=== PATIENT | female | born 1960 | race Caucasian/White ===

== ENCOUNTER → 2019-08-03 | Outpatient (CLI) | payer BC ==
--- NOTE | 2019-08-03 16:49 | Diagnostic Imaging Report ---
EXAMINATION: CHEST 2 VIEWS INDICATION: Asthma COMPARISON: None FINDINGS: LINES/TUBES:None LUNGS:The lungs are well-inflated. No focal consolidation or pulmonary edema. 7 mm pulmonary nodule at the posterior right upper lobe. PLEURA:No pleural effusion or pneumothorax. MEDIASTINUM:The cardiomediastinal silhouette appears normal in size and shape. BONES/SOFT TISSUES:No acute osseous injury. ABDOMEN:No free air under the diaphragm. IMPRESSION: No focal pneumonia or pulmonary edema. 7 mm right upper lobe pulmonary nodule. Recommend further evaluation with chest CT on a nonurgent basis. Signed by: Mau Pandya MD on 08/03/2019 4:46 PM
== END ==
LOC: RAD 16:04
PROVIDERS: ATTEND Internal Medicine Critical Care Medicine
DX: J45.909 Unspecified asthma, uncomplicated (principal); K21.9 Gastro-esophageal reflux disease without esophagitis; J34.3 Hypertrophy of nasal turbinates
CPT/HCPCS: 71046

== ENCOUNTER 2020-03-14 11:55 | Inpatient (IN) | payer BC, OTHER ==
[2020-03-11 17:11] LABS: BASOPHILS # (AUTO) 0.1 (0.0-0.1); BASOPHILS % 1.1 % (0.0-1.0); EOSINOPHILS # (AUTO) 0.3 (0.0-0.4); EOSINOPHILS % 4.7 % (0.0-6.0); HEMATOCRIT 36.7 % (34.2-44.1); HEMOGLOBIN 12.1 g/dL (12.0-16.0); LYMPHOCYTES # (AUTO) 3.4 (1.0-3.2); LYMPHOCYTES % 52.2 % (18.0-39.1); MEAN CORPUSCULAR HEMOGLOBIN 29.2 pg (28-32); MEAN CORPUSCULAR VOLUME 88.4 fL (81-99); MONOCYTES # (AUTO) 0.8 (0.2-0.8); MONOCYTES % 12.2 % (4.4-11.3); NEUTROPHILS % 29.6 % (38.7-80.0); PLATELET COUNT 423 x10e3/uL (140-360); RED BLOOD COUNT 4.15 x10e6/uL (3.6-5.1); RED CELL DISTRIBUTION WIDTH 13.2 % (11.7-14.4)
[2020-03-11 17:27] LABS: ANION GAP 16.7 mmol/L (8-16); BLOOD UREA NITROGEN 17 mg/dL (7-26); BUN/CREATININE RATIO 22 (6-25); CALCIUM 9.3 mg/dL (8.4-10.2); CARBON DIOXIDE 24 mmol/L (22-29); CHLORIDE 96 mmol/L (98-107); CREATININE, SERUM 0.76 mg/dL (0.57-1.11); EST GLOMERULAR FILTRATION RATE > 60 ML/MIN (60-); GLUCOSE 121 mg/dL (74-118); POTASSIUM 3.7 mmol/L (3.5-5.1); SODIUM 133 mmol/L (136-145)
[~2020-03-14 11:55] MED LIST: AVAPRO150 MG PO; GLYBURIDE5 MG PO; HYDROCHLOROTHIA25 MG PO; METFORMIN HCL500 M2 PO; METOPROLOL TART25 MG PO; PROTONIX20 MG PO
[2020-03-14] MEDS ORDERED: GENTAMICIN 80MG/NS 100 ML 200 ML IV ONE (12:33)
[2020-03-14] MEDS ORDERED: PIPER-TAZ 3.375 GM 50 ML ONE (12:33)
[2020-03-14] MEDS ORDERED: CLINDAMYCIN 300MG 50 ML IV ONE (12:34)
[2020-03-14] MEDS ORDERED: MULTI-VITAMIN1 EACH PO (12:46)
[2020-03-14] MEDS ORDERED: FISH OIL 1,0001 EAC2 PO (12:46)
[2020-03-14] MEDS ORDERED: VITAMIN C100 MG PO (12:46)
[2020-03-14] MEDS ORDERED: BACITRACIN 50,000 UNIT VIAL ONE (13:48)
[2020-03-14] MEDS ORDERED: INDIGOTINDISULFONATE SODIUM 8 MG/ML AMP IJ ONE (13:48)
[2020-03-14] MEDS ORDERED: BUPIVACAINE 0.25%/EPI 30ML SDV INJ ONE (13:48)
[2020-03-14] MEDS ORDERED: IOPAMIDOL 300MG/ML 50ML INFUS..BTL IV ONE (13:48)
[2020-03-14] MEDS ORDERED: SILVER SULFADIAZINE 50GM CREAM TOP ONE (13:51)
[2020-03-14] MEDS ORDERED: ONDANSETRON HCL INJ 2MG/ML 2ML 2 MG/ML VIAL ONE (14:27)
[2020-03-14] MEDS ORDERED: DEXAMETHASONE SOD PHOS INJ 4 MG/ML VIAL ONE (14:27)
[2020-03-14] MEDS ORDERED: PROPOFOL IV EMULSION 10 MG/ML 20 ML VIAL ONE (14:27)
[2020-03-14] MEDS ORDERED: LIDOCAINE HCL 2% LOCAL INJ 5 ML SDV VIAL INJ ONE (14:27)
[2020-03-14] MEDS ORDERED: EPHEDRINE SULFATE INJ 50 MG/ML VIAL ONE (14:27)
[2020-03-14] MEDS ORDERED: SEVOFLURANE INHAL SOLN 250 ML PEN BTL ONE (14:27)
[2020-03-14] MEDS ORDERED: ACETAMINOPHEN 1000 MG/100 ML 100 ML IV ONE (14:45)
[2020-03-14] MEDS ORDERED: FENTANYL CITRATE/PF 100MCG/2 ML INJ ONE ×2 (14:48→17:16)
[2020-03-14] MEDS ORDERED: MIDAZOLAM HCL 2 MG/2 ML VIAL ONE (14:48)
[2020-03-14] MEDS ORDERED: DIPHENHYDRAMINE HCL 25 MG CAP PO PRN (17:00)
[2020-03-14] MEDS ORDERED: NALOXONE HCL INJ 0.4 MG/ML AMP IV PRN (17:00)
[2020-03-14] MEDS ORDERED: ONDANSETRON HCL INJ 2MG/ML 2ML 2 MG/ML VIAL IV PRN (17:00)
[2020-03-14] MEDS ORDERED: MEPERIDINE HCL INJ 25 MG/ML VIAL ONE (17:08)
[2020-03-14] MEDS ORDERED: HYDRALAZINE HCL 20 MG/ML VIAL IV PRN (17:30)
[2020-03-14] MEDS ORDERED: DEXTROSE 50% SYRINGE 50 ML IV PRN (17:30)
[2020-03-14] MEDS ORDERED: MORPHINE SULFATE INJ 4 MG/ML INJ 1ML ONE (17:33)
[2020-03-14] MEDS ORDERED: ACETAMINOPHEN 1000 MG/100 ML IV PRN (18:00)
[2020-03-14] MEDS: MORPHINE SULFATE 1 MG/ML 30ML PCA IV PRN (18:09)
[2020-03-14 18:12] LABS: BASOPHILS # (AUTO) 0.1 (0.0-0.1); BASOPHILS % 0.7 % (0.0-1.0); EOSINOPHILS # (AUTO) 0.1 (0.0-0.4); EOSINOPHILS % 1.6 % (0.0-6.0); HEMATOCRIT 35.1 % (34.2-44.1); HEMOGLOBIN 11.8 g/dL (12.0-16.0); LYMPHOCYTES # (AUTO) 1.9 (1.0-3.2); LYMPHOCYTES % 23.3 % (18.0-39.1); MEAN CORPUSCULAR HEMOGLOBIN 29.3 pg (28-32); MEAN CORPUSCULAR HGB CONC 33.6 g/dL (31-35); MEAN CORPUSCULAR VOLUME 87.1 fL (81-99); MONOCYTES # (AUTO) 0.3 (0.2-0.8); NEUTROPHILS # (AUTO) 5.8 (2.1-6.9); NEUTROPHILS % 69.9 % (38.7-80.0); PLATELET COUNT 382 x10e3/uL (140-360); RED BLOOD COUNT 4.03 x10e6/uL (3.6-5.1)
[2020-03-14 18:29] LABS: BLOOD UREA NITROGEN 13 mg/dL (7-26); BUN/CREATININE RATIO 19 (6-25); CALCIUM 8.9 mg/dL (8.4-10.2); CARBON DIOXIDE 26 mmol/L (22-29); CHLORIDE 97 mmol/L (98-107); EST GLOMERULAR FILTRATION RATE > 60 ML/MIN (60-); GLUCOSE 132 mg/dL (74-118); SODIUM 132 mmol/L (136-145)
[2020-03-14] MEDS ORDERED: HYDROMORPHONE 1MG/1ML INJ ONE ×2 (18:51→19:20)
[2020-03-14 20:00] VITALS: BP 129/75
[2020-03-14] MEDS: SOD CHL 0.45%/POT CHL 20MEQ 1,000 ML IV SCH (20:10)
[2020-03-14 20:11] VITALS: BP 145/78
[2020-03-14] MEDS: PHENAZOPYRIDINE HCL 100 MG TAB PO PRN (20:32)
[2020-03-14] MEDS: PANTOPRAZOLE SOD 40 MG TABEC PO SCH (21:00)
[2020-03-14] MEDS: DOCUSATE SODIUM 100 MG CAP PO SCH (21:00)
[2020-03-14] MEDS: INSULIN LISPRO 100 UNIT/1 ML 3ML VIAL SQ SCH (21:00)
[2020-03-14] MEDS: PIPER-TAZ 3.375 GM 50 ML IV SCH (22:00)
[2020-03-14 23:05] VITALS: BP 129/75
[2020-03-15] VITALS (8 sets, daily range): BP systolic 97–143; BP diastolic 64–80
[2020-03-15] MEDS: MORPHINE SULFATE 1 MG/ML 30ML PCA IV PRN (02:02)
[2020-03-15] MEDS: SOD CHL 0.45%/POT CHL 20MEQ 1,000 ML IV SCH ×3 (04:00→19:56)
[2020-03-15 05:31] LABS: BASOPHILS % 0.3 % (0.0-1.0); HEMATOCRIT 29.8 % (34.2-44.1); HEMOGLOBIN 9.8 g/dL (12.0-16.0); LYMPHOCYTES # (AUTO) 1.3 (1.0-3.2); LYMPHOCYTES % 11.1 % (18.0-39.1); MEAN CORPUSCULAR HEMOGLOBIN 29.1 pg (28-32); MEAN CORPUSCULAR HGB CONC 32.9 g/dL (31-35); MEAN CORPUSCULAR VOLUME 88.4 fL (81-99); MONOCYTES # (AUTO) 1.4 (0.2-0.8); MONOCYTES % 12.3 % (4.4-11.3); NEUTROPHILS # (AUTO) 8.6 (2.1-6.9); NEUTROPHILS % 75.9 % (38.7-80.0); PLATELET COUNT 386 x10e3/uL (140-360); RED BLOOD COUNT 3.37 x10e6/uL (3.6-5.1)
[2020-03-15] MEDS: PIPER-TAZ 3.375 GM 50 ML IV SCH ×3 (05:45→21:45)
[2020-03-15] MEDS: PHENAZOPYRIDINE HCL 100 MG TAB PO PRN ×2 (05:45→21:38)
[2020-03-15 06:08] LABS: ANION GAP 14.6 mmol/L (8-16); BLOOD UREA NITROGEN 12 mg/dL (7-26); BUN/CREATININE RATIO 19 (6-25); CALCIUM 8.2 mg/dL (8.4-10.2); CARBON DIOXIDE 26 mmol/L (22-29); CHLORIDE 97 mmol/L (98-107); CREATININE, SERUM 0.64 mg/dL (0.57-1.11); EST GLOMERULAR FILTRATION RATE > 60 ML/MIN (60-); GLUCOSE 158 mg/dL (74-118); POTASSIUM 4.6 mmol/L (3.5-5.1); SODIUM 133 mmol/L (136-145)
[2020-03-15] MEDS: INSULIN LISPRO 100 UNIT/1 ML 3ML VIAL SQ SCH ×4 (08:00→20:18)
[2020-03-15] MEDS: PANTOPRAZOLE SOD 40 MG TABEC PO SCH (08:35)
[2020-03-15] MEDS: METOPROLOL TARTRATE 25 MG TAB PO SCH ×2 (08:35→17:35)
[2020-03-15] MEDS: DOCUSATE SODIUM 100 MG CAP PO SCH ×2 (08:35→17:35)
[2020-03-15] MEDS ORDERED: B&O 60MG R/S 60 MG SUPP PR PRN (09:00)
--- NOTE | 2020-03-15 09:30 | NUR ---
Urine is dark alexy/orange color at this time, no clots noted in the hurd bag.
[2020-03-15] MEDS: HYDROMORPHONE 1MG/1ML INJ IV PRN ×5 (10:44→19:45)
--- NOTE | 2020-03-15 12:00 | NUR ---
Patient was using the bathroom to have a BM and vaginal packing fell out. Patient was given a feminine pad. Will continue to monitor for bleeding. Paged Dr. Hall
--- NOTE | 2020-03-15 13:00 | NUR ---
Borrero was irrigated per orders, a few clots noted with hematuria. Will continue to monitor
--- NOTE | 2020-03-15 16:30 | NUR ---
Dr. Hall is here making rounds. Urine is clear, light orange at this time, he is aware vaginal packing fell out earlier. He said it was going to be removed today anyway. Will advance to ADA diet.
[2020-03-15] MEDS: FLUCONAZOLE 100 MG TAB PO SCH (17:35)
[2020-03-16] VITALS: BP 125/65
[2020-03-16 04:00] VITALS: BP 121/65
[2020-03-16] MEDS: SOD CHL 0.45%/POT CHL 20MEQ 1,000 ML IV SCH ×2 (04:00→12:00)
[2020-03-16] MEDS: PIPER-TAZ 3.375 GM 50 ML IV SCH (06:00)
[2020-03-16 06:07] LABS: BASOPHILS % 0.6 % (0.0-1.0); EOSINOPHILS # (AUTO) 0.2 (0.0-0.4); EOSINOPHILS % 2.2 % (0.0-6.0); HEMATOCRIT 27.6 % (34.2-44.1); HEMOGLOBIN 8.9 g/dL (12.0-16.0); LYMPHOCYTES # (AUTO) 2.7 (1.0-3.2); LYMPHOCYTES % 38.2 % (18.0-39.1); MEAN CORPUSCULAR HEMOGLOBIN 29.4 pg (28-32); MEAN CORPUSCULAR HGB CONC 32.2 g/dL (31-35); MEAN CORPUSCULAR VOLUME 91.1 fL (81-99); MONOCYTES # (AUTO) 0.9 (0.2-0.8); MONOCYTES % 12.9 % (4.4-11.3); NEUTROPHILS # (AUTO) 3.3 (2.1-6.9); NEUTROPHILS % 45.8 % (38.7-80.0); PLATELET COUNT 348 x10e3/uL (140-360); RED BLOOD COUNT 3.03 x10e6/uL (3.6-5.1)
[2020-03-16 06:30] LABS: ANION GAP 10.7 mmol/L (8-16); BLOOD UREA NITROGEN 9 mg/dL (7-26); BUN/CREATININE RATIO 15 (6-25); CALCIUM 8.3 mg/dL (8.4-10.2); CARBON DIOXIDE 28 mmol/L (22-29); CHLORIDE 104 mmol/L (98-107); CREATININE, SERUM 0.61 mg/dL (0.57-1.11); EST GLOMERULAR FILTRATION RATE > 60 ML/MIN (60-); GLUCOSE 148 mg/dL (74-118); POTASSIUM 4.7 mmol/L (3.5-5.1); SODIUM 138 mmol/L (136-145)
[2020-03-16] MEDS: INSULIN LISPRO 100 UNIT/1 ML 3ML VIAL SQ SCH ×2 (07:30→12:00)
[2020-03-16 07:49] VITALS: BP 97/59
[2020-03-16 08:00] VITALS: BP 97/59
[2020-03-16] MEDS: DOCUSATE SODIUM 100 MG CAP PO SCH (09:00)
[2020-03-16] MEDS: PANTOPRAZOLE SOD 40 MG TABEC PO SCH (09:00)
[2020-03-16] MEDS: FLUCONAZOLE 100 MG TAB PO SCH (09:00)
[2020-03-16] MEDS: ACETAMINOPHEN/CODEINE 300MG - 30MG TAB PO PRN ×2 (10:08→15:35)
--- NOTE | 2020-03-16 11:21 | NUR ---
Per Dr. Hall , patient is to ambulate the bahena a few times, dc hurd, void, bladder scan to check for residual, and call with results.
--- NOTE | 2020-03-16 12:33 | NUR ---
Borrero was removed after patient ambulated in the bahena several times. Urine is clear, yellow at this time. Patient educated on calling after voiding.
--- NOTE | 2020-03-16 13:50 | NUR ---
Patient reports she is feeling full and in a lot pain bc she cant void after attempting. Paged Dr. Hall, bladder scan reveals 550cc. Spoke with Dr. Hall and orders received to place hurd and dc home.
[2020-03-16 13:52] VITALS: BP 137/80
--- NOTE | 2020-03-16 15:40 | NUR ---
Discharge instructions and prescriptions given to the patient and her . They verbalized understanding. IV to the right hand remove with tip intact. Patient is discharging home with hurd per Dr. Hall's orders. Patient and her were given teaching regarding leg bag and how to empty hurd bag.
--- NOTE | 2020-03-16 21:43 | Discharge Summary ---
ADMISSION DIAGNOSES: 1. Cystocele, status post cystocele sling. 2. Type 2 diabetes. 3. Gastroesophageal reflux disease. DISCHARGE DIAGNOSES: 1. Cystocele, status post cystocele sling. 2. Type 2 diabetes. 3. Gastroesophageal reflux disease. MEDICAL HISTORY: Cystocele, type 2 diabetes, GERD, hypertension. SURGICAL HISTORY: None. FAMILY HISTORY: The patient's father has diabetes. SOCIAL HISTORY: Noncontributory. HOSPITAL COURSE: A 59-year-old female, admitted status post cystocele sling by Dr. Holly on 03/14/2020. 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 Prior to discharge, the Borrero was removed, but had to be replaced per Urology recommendation. She will be discharged with the Borrero and follow up in 2 weeks. Pain medicines were given to the patient. She will continue all other home medicines. The patient understands discharge instructions and agrees to plan. Dictated by Nola Light NP Macario Romeo MD TRAE/MODL /[id number]
--- OUTSIDE RECORDS SUMMARY | 2020-04-24 21:32 | XMS REPORT | Continuity of Care Document ---
Author Author [facility] t Organization Formerly [facility] Address [address] [place] [address] Phone Unavailable Care Team Providers Care Music Historian Name Role Phone DO Lee Ann OSPINA PCP Gabby POWELL Attphys Unavailable BAYORE-MS, STRESS Attphys Unavailable RICKY VALENZUELA M.D. Attphys Unavaila CJ Reeder M.D. Attphys Unavailable Payers Payer Name Policy Type Policy Number Effective Date Expiration Date [id number] 2016 00:00:00 [facility] Cdc Review Covid19 [id number] [facility] Problems Condition Name Condition Details Condition Category Status Onset Date Resolution Date Last Treatment Date Treating Clinician Comments Source History of backache History of backache Problem HL7.CCDAR2 Resolved [facility] History of diabetes mellitus History of diabetes mellitus Proble m HL7.CCDAR2 Resolved [facility] History of hypertension History of hypertension Problem HL7.CCDAR2 Res olved [facility] Acute low back pain Acute low back pain Problem HL7.CCDAR2 Active [facility] Chest pain Chest pain Problem HL7.CCDAR2 Active [facility] Chest pain, atypical Chest pain, atypical Problem HL7.CCDAR2 Active [facility] Diabetes mellitus without complication Diabetes mellitus wit hout complication Problem HL7.CCDAR2 Active [facility] Hypertension, well controlled Hypertension, well controlled Prob jamil HL7.CCDAR2 Active [facility] Problem Condition Active [facility] Allergies, Adverse Reactions, Alerts This patient has no known allergies or adverse reactions. Family History Family Member Diagnosis Comments Start Date Stop Date Source Mother Family history of diabetes mellitus [facility] Mother Family history of hypertension [facility] Father Family history of diabetes mellitus [facility] Father Family history of hypertension [facility] Social History Social Habit Start Date Stop Date Quantity Comments Source Sex Assigned At 1960 00:00:00 1960 00:00:00 Female [facility] Medications Ordered Medication Name Filled Medication Name Start Date Stop Da te Current Medication? Ordering Clinician Indication Dosage Frequency Signature (SIG) Comments Components Source MetFORMIN HCl TABS MetFORMIN HCl TABS Yes [facility] HydroCHLOROthiazide 25 MG Oral Tablet HydroCHLOROthiazide 25 MG Ora l Tablet Yes [facility] Metoprolol Succinate ER 25 MG Oral Tablet Extended Rel ease 24 Hour Metoprolol Succinate ER 25 MG Oral Tablet Extended Release 24 Hour Yes [facility] Avapro 300 MG Oral Tablet Avapro 300 MG Oral Tablet Yes [facility] GlyBURIDE 5 MG Oral Tablet GlyBURIDE 5 MG Oral Tablet Yes [facility] Ascorbic Acid (Vitamin C) 100 Mg TABLET Ascorbic Acid (Vitam in C) 100 Mg TABLET Yes Daily [facility] Glyburide Glyburide Yes 5 Twice A Day [facility] Hydrochlorothiazide Hydrochlorothiazide Yes 25 Daily [facility] Irbesartan (Avapro) 150 Mg TABLET Irbesartan (Avapro) 150 Mg TABLET Yes 300 Daily [facility] Metformin Hcl (Metformin Hcl Er) 500 Mg TAB.ER.24 Metf ormin Hcl (Metformin Hcl Er) 500 Mg TAB.ER.24 Yes 1500 Daily [facility] Metformin Hcl (Metformin Hcl Er) 500 Mg TAB.ER.24 Metf ormin Hcl (Metformin Hcl Er) 500 Mg TAB.ER.24 Yes 500 Bedtime [facility] Metoprolol Tartrate Metoprolol Tartrate Yes 25 Twice A Day [facility] Multivitamin (Multi-Vitamin Daily) 1 Each TABLET Multi vitamin (Multi-Vitamin Daily) 1 Each TABLET Yes Daily [facility] Alger-3 Fatty Acids/Fish Oil (Fish Oil 1,000 Mg Capsul e) 1 Each CAPSULE Alger-3 Fatty Acids/Fish Oil (Fish Oil 1,000 Mg Capsule) 1 Each CAPSULE Yes Daily [facility] Pantoprazole Sodium (Protonix) 20 Mg TABLET. Pantopr azole Sodium (Protonix) 20 Mg TABLET. Yes 20 Daily [facility] Vital Signs Vital Name Observation Time Observation Value Comments Source Body Temperature 2020-03-16 13:52:00 96.8 [degF] [facility] BP Systolic 2018-10-11 12:17:00 116 mm[Hg] [place] [facility] [facility] BP Diastolic 2018-10-11 12:17:00 77 mm[Hg] Location: [facility] Height 2018-10-11 12:17:00 64 [in_us] [facility] Weight 2018-10-11 12:17:00 189 [lb_av] [facility] Body Mass Index Calculated 2018-10-11 12:17:00 32.44 kg/m2 [facility] Heart Rate 2018-10-11 12:17:00 87 /min Location: L Brachial Artery; [facility] Procedures Procedure Date / Time Performed Performing Clinician [facility] e X-ray of chest, two views 2019-08-03 00:00:00 CH I [facility] [N] Plain Treadmill-Non Imaging Stress Test-Standard Sarath 2 00:00:00 [facility] Plan of Care Planned Activity Planned Date Details Comments Source Diagnostic Test Pending 2018-10-11 00:00:00 [N] Plain Treadm ill-Non Imaging Stress Test-Standard Sarath [code = [N] Plain Treadmill-Non Imaging Stress Test- Standard Sarath] [facility] Instructions Post Operative Pain [facility] Encounters Start Date/Time End Date/Time Encounter Type Admission Type Attendi [facility] Care [facility] Care Department Encounter ID Source 2020-03-14 16:13:00 2020-03-16 15:58:00 Discharged Inpatient [facility] [id number] [facility] 2019-08-03 15:04:00 2019-08-03 15:04:00 Registered Clinic 3 FRANKO POWELL [facility] [id number] [facility] 2018-10-11 13:00:00 2018-10-11 13:00:00 Appointment; SUSHANTSHHAIDER-MS, S N[facility], STRESS [facility] [address] [id number] [facility] 2018-10-11 12:00:00 2018-10-11 12:00:00 Appointment; RICKY LEYVA M.D. CHARITAKIS, KONSTANTINOS, M.D. [facility] [address] [id number] [facility] 2017-03-08 13:15:00 2017-03-08 13:15:00 Appointment; CJ LIU M.D. LI-YUNG HING, ANDREW, M.D. [facility] [id number] [facility] Results Test Description Test Time Test Comments Results Result Comments Source Capillary blood glucose measurement by glucometer (mas s/volume) 2020-03-16 11:41:00 Test Item Bedside Glucose (test code = 30375-4) 200 70-120 Meter ID: [id number] leukocytes automated count (number/volume)2020-03-16 04:55:00* Test Item Value Reference Range Interpretation Comments White Blood Count (test code = 6690-2) 7.14 4.8-10.8 [facility] erythrocytes automated count (number/volume)2020-03-16 04:55:00* Test Item Value Reference Range Interpretation Comments Red Blood Count (test code = 789-8) 3.03 3.6-5.1 [facility] hemoglobin measurement (moles/volume)2020-03-16 04:55:00* Test Item Value Reference Range Interpretation Comments Hemoglobin (test code = 98003-2) 8.9 12.0-16.0 [facility] ClubAutomated blood hematocrit (volume fraction)2020-03-16 04:55:00* Test Item Value Reference Range Interpretation Comments Hematocrit (test code = 4544-3) 27.6 34.2-44.1 [facility] Club[facility]ated erythrocyte mean corpuscular vhhtiw6046-70-39 04:55:00* Test Item Value Reference Range Interpretation Comments Mean Corpuscular Volume (test code = 787-2) 91.1 81-99 [facility] Club[facility] erythrocyte mean corpuscular hemoglobin (mass per erythrocyte)2020-03-16 04:55:00* Test Item Value Reference Range Interpretation Comments Mean Corpuscular Hemoglobin (test code = 785-6) 29.4 28-32 [facility] Club[facility] erythrocyte mean corpuscular hemoglobin concentration measurement (mass/volume)2020-03-16 04:55:00* Test Item Value Reference Range Interpretation Comments Mean Corpuscular Hemoglobin Concent (test code = 786-4) 32.2 31-35 [facility] ClubRDW PvvFi-Ool3853-15-21 04:55:00* Test Item Value Reference Range Interpretation Comments Red Cell Distribution Width (test code = 08037-1) 13.0 11.7 -14.4 [facility] Club[facility] blood platelet count (count/volume)2020-03-16 04:55:00* Test Item Value Reference Range Interpretation Comments Platelet Count (test code = 777-3) 348 140-360 [facility] ClubAutcommunity healthed blood segmented neutrophil count as percentage of total furajhbozy0718-07-56 04:55:00* Test Item Value Reference Range Interpretation Comments Neutrophils (%) (Auto) (test code = 13275-4) 45.8 38.7-80.0 [facility] ClubAutomated blood lymphocyte count as percentage ot total ncmullakfc5492-98-79 04:55:00* Test Item Value Reference Range Interpretation Comments Lymphocytes (%) (Auto) (test code = 736-9) 38.2 18.0-39.1 [facility] ClubAutcommunity healthed blood monocyte count as percentage of total qejepnctic3928-03-92 04:55:00* Test Item Value Reference Range Interpretation Comments Monocytes (%) (Auto) (test code = 5905-5) 12.9 4.4-11.3 [facility] ClubAutomated blood eosinophil count as percentage of total wnykttgxcq2257-68-21 04:55:00* Test Item Value Reference Range Interpretation Comments Eosinophils (%) (Auto) (test code = 713-8) 2.2 0.0-6.0 [facility] ClubAutom[facility] blood basophil count as percentage of total ekwmzcdhvq6468-23-11 04:55:00* Test Item Value Reference Range Interpretation Comments Basophils (%) (Auto) (test code = 706-2) 0.6 0.0-1.0 [facility] ClubFluoroscopic procedure less than one hour niokjgmy1997-38-82 04:55:00* Test Item Value Reference Range Interpretation Comments IM GRANULOCYTES % (test code = IM GRANULOCYTES %) 0.3 0.0- 1.0 [facility] neutrophil count 2020-03-16 04:55:00* Test Item Value Reference Range Interpretation Comments Neutrophils # (Auto) (test code = 751-8) 3.3 2.1-6.9 [facility] Club[facility] lymphocytes count (number/volume) 2020-03-16 04:55:00* Test Item Value Reference Range Interpretation Comments Lymphocytes # (Auto) (test code = 72596-9) 2.7 1.0-3.2 [facility] monocytes automated count (number/volume)2020-03-16 04:55:00* Test Item Value Reference Range Interpretation Comments Monocytes # (Auto) (test code = 742-7) 0.9 0.2-0.8 [facility] ClubAutomated blood eosinophil count 2020-03-16 04:55:00* Test Item Value Reference Range Interpretation Comments Eosinophils # (Auto) (test code = 711-2) 0.2 0.0-0.4 [facility] ClubAutomated blood basophil count (count/volume)2020-03-16 04:55:00* Test Item Value Reference Range Interpretation Comments Basophils # (Auto) (test code = 704-7) 0.0 0.0-0.1 [facility] ClubFluoroscopic procedure less than one hour mpwxrwci8095-12-20 04:55:00* Test Item Value Reference Range Interpretation Comments Absolute Immature Granulocyte (auto (jennifer t code = Absolute Immature Granulocyte (auto) 0.02 0-0.1 [facility] or plasma sodium measurement (moles/volume)2020-03-16 04:55:00* Test Item Value Reference Range Interpretation Comments Sodium Level (test code = 2951-2) 138 136-145 [facility]asterum or plasma potassium measurement (moles/volume)2020-03-16 04:55:00* Test Item Value Reference Range Interpretation Comments Potassium Level (test code = 2823-3) 4.7 3.5-5.1 [facility]um or plasma chloride measurement (moles/volume)2020-03-16 04:55:00* Test Item Value Reference Range Interpretation Comments Chloride Level (test code = 2075-0) 104 98-107 [facility]asterum or plasma carbon dioxide, total measurement (moles/volume)2020-03-16 04:55:00* Test Item Value Reference Range Interpretation Comments Carbon Dioxide Level (test code = 2028-9) 28 22-29 [facility]asterum or plasma anion yot8978-08-73 04:55:00* Test Item Value Reference Range Interpretation Comments Anion Gap (test code = 15335-0) 10.7 8-16 [facility]asterum or plasma urea nitrogen measurement (mass/volume)2020-03-16 04:55:00* Test Item Value Reference Range Interpretation Comments Blood Urea Nitrogen (test code = 3094-0) 9 7-26 [facility]asterum or plasma creatinine measurement (mass/volume)2020-03-16 04:55:00* Test Item Value Reference Range Interpretation Comments Creatinine (test code = 2160-0) 0.61 0.57-1.11 [facility]asterum or plasma urea nitrogen/creatinine mass jyxyh7690-31-07 04:55:00* Test Item Value Reference Range Interpretation Comments BUN/Creatinine Ratio (test code = 3097-3) 15 6-25 [facility] ClubEstimated glomerular filtration rate (GFR) qraxfxamtuhqk4239-78-14 04:55:00* Test Item Value Reference Range Interpretation Comments Estimat Glomerular Filtration Rate (test code = 930039521) > 60 >60 Ranges were taken from the National Kidney Disease Education Program and the [facility] literature.Reference ranges:60 or greater: Ssjirs36-53 ( for 3 consecutive months): Chronic kidney disease 15 or less: Kidney failureBaylor Scott & White Medical Center – Trophy ClubGlucose lfjadzxtnpy0095-76-99 04:55:00* Test Item Value Reference Range Interpretation Comments Glucose Level (test code = RJI7071) 148 74-118 [facility] Southeasterum or plasma calcium measurement (mass/volume)2020-03-16 04:55:00* Test Item Value Reference Range Interpretation Comments Calcium Level (test code = 19631-9) 8.3 8.4-10.2 [facility] ClubFluoroscopic procedure less than one hour cagokuoy3105-66-09 16:22:00* Test Item Value Reference Range Interpretation Comments Coronavirus (PCR) (test code = Coronavirus (PCR)) NOT DETECTED NOTD ETECTED SARS-COV-2 (COVID19), HIGHRISK, RT-PCRNegative results do not preclude SARS-CoV- 2 infection and should not be used as the sole basis for patient management deci sions. Negative results must be combined with clinical observations, patient his tory, and epidemiological information. Optimum specimen types and timing for pea k viral levels during infections caused by SARS-CoV-2 have not been determined. Collection of multiple specimens ot types of specimens may be necessary to detec t virus. Improper specimen collection and handling, sequence variability under p rimers/probes, or organism present below the limit of detection may lead to fals e negative results. Positive and negative predictive values of testing are highl y dependent on prevalance. False negative test results are more likely when prev alence is high.The expected result is negative (not detected).The SARS-CoV-2 jennifer t is intended for the qualitative detection of nucleic acid from SARS-CoV-2 in n asopharyngeal and oropharyngeal swab samples from patients who meet COVID-19 cli nical and or epidemiological criteria. For lower respiratory tract specimens, th e assay is submitted for authoriztion by FDA under an Emergency Use Authorizatio n (EUA). Testing methodology is real time RT-PCR. If received as separate collec tion devices, nasopharygeal and oropharyngeal specimens are combined for analysi s. Additional specimens may be split to a separate accession for analysi and rep orting as this test includes a single unit of service.Test results must be corre lated with clinical presentation and evaluated in the context of other laborator y and epidemiologic data. Test performance can be affected because the epidemiol ogy and clinical spectrum of infection caused by SARS-CoV-2 is not fully known. For example, the optimum types of specimens to collect and when during the cours e of infection these specimens are most likely to contain detectable viral RNA m ay not be known.This test has not been Food and Drug Administration (FDA) cleare d or approved and has been authorized by FDA under an Emergency Use Authorizatio n (EUA). The test is only authorized for the duration of the declaration that ci rcumstances exist justifying the authorization of emergency use of in vitro diag nostic tests for detection and/or diagnosis of SARS-CoV-2 under section 564(b) o f the Act, 21 U.S.C. section 360bbb-3(b)(1), unless the authorization is termina joaquina or revoked sooner. [facility] are certified under the C linical Laboratory Improvement Amendments of 1988 (CLIA), 42 U.S.C. section 263a , to perform high complexity tests.Testing performed by [facility] [id number] [place], [place] [id number] Director: Saturnino Matthews M.D.CLIA # [id number] [facility] 2 [id number] 16:44:00 [place] [address] Patient Name: BERTHA CARDENAS MR #: [id number] : 1960 Age/Sex: 59/F Req #: [id number] Adm Physician: Ordered by: FRANKO POWELL MD Report #: [id number] Location: [facility] Room/Bed: Procedure: [id number] DX/ CHEST 2 VIEWS Exam Date: 08/03/19 Exam Time: 1630 REPORT STATUS: Signed EXAMINATION: CHEST 2 VIEWS INDICATION: Asthma COMPARISON: None FIND INGS: LINES/TUBES:None LUNGS:The lungs are well-inflated. No focal con solidation or pulmonary edema. 7 mm pulmonary nodule at the posterior right up per lobe. PLEURA:No pleural effusion or pneumothorax. MEDIASTINUM:The cardiomediastinal silhouette appears normal in size and shape. BONES/SOFT TISSUES:No acute osseous injury. ABDOMEN:No free air under the diaphragm. IMPRESSION: No focal pneumonia or pulmonary edema. 7 mm right upp er lobe pulmonary nodule. Recommend further evaluation with chest CT on a nonu rgent basis. Signed by: Eusebio Crenshaw MD on 08/03/2019 4:46 PM Dictated By: EUSEBIO CRENSHAW MD 45 Tr anscribed By: TERE on 08/03/196 COPY TO: FRANKO POWELL MD, ABI SCR MAMM BILATERAL DWAYNE CAD [id number] 09:44:36 - SCR MAMM BILATERAL DWAYNE CAD DIGITALBILATERAL DIGITAL SCREENING MAMMOGRAM 3D/2D WITH CAD: 06/27/2019CLINICAL: Asymptomatic. Digital breast tomosynthesis was performed in addition to routine CC and MLO views. Current mammographic images were evaluated by either a CE Interactive M-Vu or a ExpertFlyer ImageChecker CAD (computer aided detection system). Comparison is made to exams dated 04/26/2016 mammogram, mammogram, and 03/25/2015 mammogram - [facility]. There are scattered fibroglandular tissues in both breasts. No suspicious mass, archi tectural distortion, malignant type calcification, or lymph node abnormality det ected. Breast architecture is stable compared to prior exams.IMPRESSION: NEGATI VEThere is no mammographic evidence of malignancy. Resume annual screening mammo graphy in one year. Remberto martins/evaristo:06/27/2019 09:44: 36 .Net Developer: Solange TORRES, [facility] sent: BIRADS 1-2 Normal Mammogram BI-RADS: 1 Negative
--- OUTSIDE RECORDS SUMMARY | 2020-04-24 21:32 | XMS REPORT | Summary of Care ---
Author BERTHA Corbett Organization Unknown Address Unknown Phone Unavailable Care Team Providers Care Cig[employer] P[employer]ader Name Role Phone [facility], STRESS Unavailable Unavailable ELKIN OSPINA DO Unavailable Unavailable Ricky Almanzar MD Unavailable Unavailable Unavailable Unavailable Functional Status Name Dates Details Functional status health issues are not documented Status: Name Dates Details Cognitive status health issues are not d ocumented Status: Problems Name Dates Details Acute low back pain (724.2, M54.5) Status: Active Chest pain (786.50, R07.9) Status: Active Chest pain, atypical (786.59, R07.89) Status: Active Diabetes mellitus without complication ( 250.00, E11.9) Status: Active Hypertension, well controlled (401.9, I1 0) Status: Active Medications Name Dates Details MetFORMIN HCl TABS Active HydroCHLOROthiazide 25 MG Oral Tablet * Refills: 0 Active Metoprolol Succinate ER 25 MG Oral Tablet Extended Release 24 Hour * Refills: 0 Active Avapro 300 MG Oral Tablet * Refills: 0 Active GlyBURIDE 5 MG Oral Tablet * Refills: 0 Active Allergies and Adverse Reactions Name Dates Details No Known Drug Allergies (Allergy) Status : Active Past Medical History Name Dates Details History of backache (V13.59, Z87.39) Status: Resolved History of diabetes mellitus (V12.29, Z8 6.39) Status: Resolved History of hypertension (V12.59, Z86.79) Status: Resolved Procedures Procedure Dates Details History of No history of surgery Complet ed Immunization Name Dates Details Immunizations not documented Family History Name Dates Details Family history of hypertension (V17.49, Z82.49) Status: Active Family history of diabetes mellitus (V18 .0, Z83.3) Status: Active Name Dates Details Family history of hypertension (V17.49, Z82.49) Status: Active Family history of diabetes mellitus (V18 .0, Z83.3) Status: Active Social History Name Dates Details Unknown if ever smoked Vital Signs Date Test Result Details [id number] BP Systolic 116 mm[Hg] Status: Comments: Lo cation: LUE; BP Diastolic 77 mm[Hg] Status: Comments: Lo cation: LUE; Height 64 in Status: Weight 189 lb Status: Body Mass Index Calculated 32.44 kg/m2 Status: Body Surface Area Calculated 1.91 m2 Status: Heart Rate 87 /min Status: Comments: Lo cation: L Brachial Artery; Results Date Description Value Details Results not documented Plan of Care Name Dates Details Planned Observations Planned Goals not documented Interventions Provided Labs/Procedures/Imaging* [N] Plain Treadmill-Non Imaging Stress Test-Standard Sarath; Done: 11 Oct 2018 Instructions Name Dates Details Instructions not documented Encounters Appointment; CJ LIU M.D. Encounter Diagnosis: Problem not documented On: 08-Mar-2017 13:15 Appointment; RICKY ALMANZAR M .D. Encounter Diagnosis: Problem not documented On: 11-Oct-2018 12:00 Appointment; RONAK STRESS Encounter Diagnosis: Problem not documented On: 11-Oct-2018 13:00
--- NOTE | 2020-04-28 00:40 | Operative Report ---
DATE OF PROCEDURE: 03/14/2020 SURGEON: Raul Hall MD PREOPERATIVE DIAGNOSES: 1. Stress incontinence. 2. Severe cystocele. 3. Urinary tract infections. POSTOPERATIVE DIAGNOSES: 1. Stress incontinence. 2. Severe cystocele. 3. Urinary tract infections. OPERATIONS PERFORMED: 1. Repair of cystocele. 2. Utilization of graft and cystocele repair. 3. Pubovaginal sling utilizing homograft. 4. Cystourethroscopy with bilateral ureteral catheterization and retrograde ureteropyelography (separate procedure performed for the urinary tract infections). 5. Interpretation of retrograde ureteropyelography, no radiologist present. 6. Supervision of fluoroscopy, no radiologist present. BOTTOM LIQUOR ATTENDANT: Roya Hall MD ANESTHESIA: General. CLINICAL SUMMARY: Narcisa Crawford is a 59-year-old woman with severe prolapse. She has incontinence as well. Options were discussed with the patient. She elected to proceed with surgery today as planned. She is aware of the risks of bleeding, infection, injury to adjacent structures, persistent incontinence, de magda incontinence, persistent urinary retention, need for catheterizations. She understood all these risks and elected to proceed. OPERATIVE PROCEDURE IN DETAIL: Informed consent was verified. Narcisa Crawford was properly identified, taken to the operating room, placed on the operating table in supine position. Anesthesia was uneventfully begun. The patient was then carefully gently repositioned in the dorsal lithotomy position with all pressure points well padded. Her abdomen, genitalia, and perineum were shaved, prepared, and draped in the usual sterile fashion. Labial stay sutures were utilized. Marcaine with epinephrine was utilized to infiltrate submucosally anteriorly the vaginal vault. Midline incision was then made. Bilateral vaginal vault flaps were developed. We pierced the endopelvic fascia laterally, taking care to stay as laterally as possible to avoid injury to the periurethral neurovascular complexes. We carried out the dissection to the cephalad most extent of the anterior vaginal wall. We utilized heavy Vicryl suture in an interrupted fashion to perform plication-type repair by approximating the cut edges of the endopelvic fascia from the bladder neck to the cephalad most extent of the vaginal dissection. This resulted in complete reduction of the patient's large cystocele. The patient's bladder was drained with a Borrero catheter. We utilized fascia taran homograft. We cut into shape and rehydrated it in antibiotic irrigant. We then utilized a heavy PDS suture and placed it through the each end of the graft in the helical fashion. We then utilized the PowerPot needle system to have the posterior surface of the pubis and guide the needles through the anterior abdominal wall and then dragging with the needle with a pair of PDS suture strands. This was performed bilaterally. We then utilized chromic suture to secure the graft in such a fashion as to support the entire cystocele repair. The graft was then taken and approximated to the distal urethra, thus completing a pubovaginal sling. We then utilized the PowerPot lateral suture passer to take one strand of each PDS suture and tunneled it subcutaneously suprapubically to join its contralateral counterpart. The sutures were then tied down to the level of the patient's skin and then the knots were allowed to fall deep within the suprapubic fat pad thus ensuring a non-lifting and non-constricting sling. Copious irrigation was performed. The vaginal mucosa was trimmed minimally. The vaginal incision was then approximated with heavy Vicryl suture in running fashion. The abdominal stab wounds were approximated with Monocryl suture in subcuticular fashion. Marcaine was also infiltrated circumferentially around the abdominal stab wounds. The Borrero catheter was removed. Cystoscopy was performed. Panendoscopy of the bladder revealed no suspicious mucosal lesions, no tumors, no stones, no diverticula, no suspicious lesions. Ureteral catheter was used to cannulate each ureter and retrograde ureteropyelogram was performed. Interpretation of retrograde ureteropyelography contrast was instilled in retrograde fashion bilaterally. There were no tumors, no stones, and no diverticula. Unobstructed drainage was observed bilaterally fluoroscopically. The Borrero catheter was replaced. Vaginal packing was placed. The dressings were applied to the abdominal stab wounds. The labial stay sutures were removed. The patient was uneventfully reversed from anesthesia and taken to recovery room in stable condition. There were no complications to the procedure. The patient tolerated the procedure well. We will proceed with routine postoperative care and ongoing urological followup. Raul Hall MD [place]/MODL /[id number] cc: Eliel Rosas DO
== END 2020-03-16 15:58 | disposition home or self-care (01) | DRG 748 ==
LOC: OR 11:55 → PACU V 16:13 → MED/SURG 19:11
PROVIDERS: ADMIT Internal Medicine; ATTEND Internal Medicine
PROC: 0T788ZZ Dilation of Bilateral Ureters, Via Natural or Artificial Opening Endoscopic (ICD-10-PCS; 2020-03-14)
PROC: BT141ZZ Fluoroscopy of Kidneys, Ureters and Bladder using Low Osmolar Contrast (ICD-10-PCS; 2020-03-14)
PROC: 0JUC3JZ Supplement of Pelvic Region Subcutaneous Tissue and Fascia with Synthetic Substitute, Percutaneous Approach (ICD-10-PCS; principal; 2020-03-14 14:00)
PROC: 0TSD4ZZ Reposition Urethra, Percutaneous Endoscopic Approach (ICD-10-PCS; 2020-03-14 14:00)
DX: N81.10 Cystocele, unspecified (principal); E11.9 Type 2 diabetes mellitus without complications; K21.9 Gastro-esophageal reflux disease without esophagitis; I10 Essential (primary) hypertension; Z11.59 Encounter for screening for other viral diseases; N39.3 Stress incontinence (female) (male)
CPT/HCPCS: 36415; 74420; 80048; 82948; 85025; 93005; 96372; C1752; C1758; J1100; J1170; J1580; J2001; J2175; J2250; J2270; J2405; J2543; J3010; U0002